=== PATIENT | female | born 1945 | race Caucasian/White ===

== ENCOUNTER 2016-08-06 13:34 | Inpatient (IN) | payer OTHER, MEDICARE ==
[~2016-08-06] VITALS: Ht 152.4 cm; Wt 102.0 kg
[2016-08-06] VITALS (8 sets, daily range): BP systolic 119–172; BP diastolic 64–86; PULSE 70–87; RESP 18–20; TEMP 98.1; O2SAT 96–100
[~2016-08-06 13:34] MED LIST: DILA100C PO; DILA50CH CHEW; GLUCTAB PO; LORA-474 PO; NEUR100C PO
[2016-08-06] MEDS ORDERED: FISHCAP4 PO (14:13)
[2016-08-06] MEDS ORDERED: VITA10007 PO (14:13)
[2016-08-06] MEDS ORDERED: CALC600T4 PO (14:13)
--- NOTE | 2016-08-06 14:36 | PD ---
HPI Chief Complaint: Injury Time Seen by Provider: 14:36 Travel History International Travel<30 days: No Contact w/Intl Traveler<30days: No Traveled to known affect area: No History of Present Illness HPI 71-year-old right-hand dominant female presents to the ED for evaluation of 7/ 10 right arm pain. Onset after falling into a ditch near her mailbox today. Patient states she lost her balance and fell, landing on her right arm. She denies hitting her head or loss of consciousness. Denies shoulder pain, hip pain. Endorses a "bubbly" feeling of the arm and states that her arm is "rubbery." She denies numbness, tingling. She has been ambulatory since the accident. She states that a neighbor helped her into the house and a friend drove her to the ED. She denies chronic health problems and takes no daily medications. PFSH Past Medical History Arthritis: Yes Autoimmune Disease: No Blood Disorders: No Depression: Yes Cancer: No Cardiovascular Problems: Yes Chemotherapy: No Diabetes: Yes Endocrine: Yes Gastrointestinal Disorders: No Genitourinary: No Immune Disorder: No Musculoskeletal: Yes Psychiatric: Yes Radiation Therapy: No Seizures: Yes Tetanus Vaccination: Unknown Influenza Vaccination: No ?: Not Past Surgical History AICD: No Arteriovenous Shunt: No Hysterectomy: Yes Insulin Pump: No Joint Replacement: No Pacemaker: No Tonsillectomy: Yes (AND ADDENOIDS) Other Surgery: No Social History Alcohol Use: Yes Tobacco Use: No Substance Use: No Allergies-Medications (Allergen,Severity, Reaction): Coded Allergies: No Known Allergies (Verified , 08/06/16) Reported Meds & Prescriptions Reported Meds & Active Scripts Active Reported Fish Oil + D3 (Fish Oil-Cholecalciferol) 1,200-1,000 Mg-Unit Cap 1 Cap PO DAILY Vitamin C (Ascorbic Acid) 1,000 Mg Tab 1,000 Mg PO DAILY Calcium Carbonate 1,500 Mg Tab 1,500 Mg PO DAILY 1,500 mg calcium carbonate (600 mg elemental calcium) Review of Systems Except as stated in HPI: all other systems reviewed are Neg Physical Exam Narrative GENERAL: Well-nourished, well-developed alert, oriented, obese white female in no acute distress.. SKIN: Warm and dry. Intact. HEAD: Normocephalic. EYES: No scleral icterus. No injection or drainage. NECK: Supple, trachea midline. No JVD or lymphadenopathy. CARDIOVASCULAR: Regular rate and rhythm without murmurs, gallops, or rubs. RESPIRATORY: Breath sounds equal bilaterally. No accessory muscle use. GASTROINTESTINAL: Abdomen soft, non-tender, nondistended. MUSCULOSKELETAL: No cyanosis, or edema. FOCUSED RIGHT UPPER EXTREMITY EXAM: 2+ radial pulse. Exam limited due to body habitus. Crepitus and tenderness of the mid forearm. No tenderness to palpation of the radial head. No tenderness to palpation of the wrist. No snuffbox tenderness. Patient is able to weakly flex and extend the fingers of the hand. Neurovascularly intact. BACK: Nontender without obvious deformity. No CVA tenderness. Data Data Last Documented VS Vital Signs Date Time Temp Pulse Resp B/P Pulse Ox O2 Delivery O2 Flow Rate FiO2 08/06/16 18:50 78 18 119/79 98 Room Air 08/06/16 16:30 2.00 08/06/16 13:42 98.1 Orders Acetamin-Hydrocod 325-5 Mg ([place] 5-325 (08/06/16 14:45) Forearm (2vws) (08/06/16 14:40) Ice/Cold Pack (08/06/16 14:40) ^ Insert Iv (08/06/16 15:09) Propofol 200 Mg/20 Ml Inj (Diprivan 200 (08/06/16 16:30) Elbow, Limited (Ap&Lat) (08/06/16 14:40) Elbow, Limited (Ap&Lat) (08/06/16 ) Ondansetron Inj (Zofran Inj) (08/06/16 18:30) Morphine Inj (Morphine Inj) (08/06/16 18:30) Electrocardiogram (08/06/16 18:17) Complete Blood Count With Diff (08/06/16 18:17) Basic Metabolic Panel (Bmp) (08/06/16 18:17) Prothrombin Time / Inr (Pt) (08/06/16 18:17) Act Partial Throm Time (Ptt) (08/06/16 18:17) Urinalysis - C+S If Indicated (08/06/16 18:17) Chest, Single Ap (08/06/16 18:17) Splint Or Brace Apply/Monitor (08/06/16 18:22) Fiberglass Splint Elbow Adult (08/06/16 ) Sling Cradle Arm (08/06/16 ) Admit Order (Ed Use Only) (08/06/16 19:19) Labs Laboratory Tests Test 08/06/16 18:35 White Blood Count 9.7 TH/MM3 Red Blood Count 4.47 MIL/MM3 Hemoglobin 13.8 GM/DL Hematocrit 40.4 % Mean Corpuscular Volume 90.2 FL Mean Corpuscular Hemoglobin 30.9 PG Mean Corpuscular Hemoglobin 34.2 % Concent Red Cell Distribution Width 13.1 % Platelet Count 187 TH/MM3 Mean Platelet Volume 9.4 FL Neutrophils (%) (Auto) 77.5 % Lymphocytes (%) (Auto) 15.1 % Monocytes (%) (Auto) 6.2 % Eosinophils (%) (Auto) 0.4 % Basophils (%) (Auto) 0.8 % Neutrophils # (Auto) 7.5 TH/MM3 Lymphocytes # (Auto) 1.5 TH/MM3 Monocytes # (Auto) 0.6 TH/MM3 Eosinophils # (Auto) 0.0 TH/MM3 Basophils # (Auto) 0.1 TH/MM3 CBC Comment DIFF FINAL Differential Comment Prothrombin Time 10.4 SEC Prothromb Time International 0.9 RATIO Ratio Activated Partial 24.9 SEC Thromboplast Time Sodium Level 138 MEQ/L Potassium Level 4.4 MEQ/L Chloride Level 104 MEQ/L Carbon Dioxide Level 23.1 MEQ/L Anion Gap 11 MEQ/L Blood Urea Nitrogen 19 MG/DL Creatinine 0.61 MG/DL Estimat Glomerular Filtration 97 ML/MIN Rate Random Glucose 107 MG/DL Calcium Level 9.3 MG/DL [facility] Medical Decision Making Medical Screen Exam Complete: Yes Emergency Medical Condition: Yes Differential Diagnosis Fracture versus dislocation versus musculoskeletal pain versus other Narrative Course 71-year-old right-hand dominant female presents to the ED for evaluation of 7/ 10 right arm pain. Onset after falling into a ditch near her mailbox today. Patient states she lost her balance and fell, landing on her right arm. She denies hitting her head or loss of consciousness. Denies shoulder pain, hip pain. Endorses a "bubbly" feeling of the arm and states that her arm is "rubbery." She denies numbness, tingling. Vitals reviewed. Physical exam reveals an obese white female in no acute distress. Focused right upper extremity exam reveals 2+ radial pulse. Exam limited due to body habitus. Crepitus and tenderness of the mid forearm. No tenderness to palpation of the radial head. No tenderness to palpation of the wrist. No snuffbox tenderness. Patient is able to weakly flex and extend the fingers of the hand. Neurovascularly intact. Patient was administered 5 mg Lortab by mouth. Initial X-rays reveal dislocation of the elbow. Order to insert IV was placed. Patient was transferred to the medical pod under the care of Dr. Bailey for conscious sedation and closed reduction. Please see his notes for disposition. Cathy Tellez Aug 06, 2016 14:36
[2016-08-06] MEDS ORDERED: ACETAMINOPHEN/HYDROcodone 325 MG/5 MG TAB PO ONE (14:45)
--- NOTE | 2016-08-06 15:43 | RADHPO ---
EXAM DATE/TIME: 08/06/2016 14:51 [facility] COMPARISON: No previous studies available for comparison. INDICATIONS : Right forearm pain. Fall today. MEDICAL HISTORY : None. SURGICAL HISTORY : None. ENCOUNTER: Initial ACUITY: 1 day PAIN SCORE: 10/10 LOCATION: Right forearm. FINDINGS: The examination demonstrates dislocation of the right elbow. There is fracture which appears to origi blair off the capitulum. Detailed views of the elbow are warranted for further assessment. CONCLUSION: 1. Fracture dislocation of the right elbow as above. Crow Martinez MD on August 06, 2016 at 15:38 Board Certified Radiologist. This report was verified electronically.
[2016-08-06] MEDS ORDERED: PROPOFOL 200 MG/20 ML AMP IV ONE (16:30)
--- NOTE | 2016-08-06 17:28 | RADHPO ---
EXAM DATE/TIME: 08/06/2016 16:49 [facility] COMPARISON: No previous studies available for comparison. INDICATIONS : Post reduction. MEDICAL HISTORY : None. SURGICAL HISTORY : None. ENCOUNTER: Subsequent ACUITY: 1 day PAIN SCORE: 10/10 LOCATION: Right elbow FINDINGS: There is an acute dislocation of the distal humerus in relation to the proximal radius and ulna. Acu te fracture of the radial neck and probable coronoid process of the proximal ulna are also noted. CONCLUSION: Dislocation of the distal humerus in relation to the proximal ulna and radius with acute fractures in volving the proximal radius and coronoid process of the proximal ulna. Real Greenwood MD on August 06, 2016 at 17:23 Board Certified Radiologist. This report was verified electronically.
--- NOTE | 2016-08-06 18:06 | RADHPO ---
EXAM DATE/TIME: 08/06/2016 17:22 [facility] COMPARISON: ELBOW RIGHT LIMITED (AP & LAT), August 06, 2016, 16:49. INDICATIONS : Post reduction. MEDICAL HISTORY : None. SURGICAL HISTORY : None. ENCOUNTER: Subsequent ACUITY: 1 day PAIN SCORE: 10/10 LOCATION: Right elbow FINDINGS: There has been closed reduction of the right elbow dislocation. Acute displaced fractures involving the proximal radius and ulna are again noted. CONCLUSION: 1. Closed reduction of the right elbow joint dislocation. 2. Displaced fractures involving the right proximal radius and ulna. Real Greenwood MD on August 06, 2016 at 18:02 Board Certified Radiologist. This report was verified electronically.
[2016-08-06] MEDS ORDERED: ONDANSETRON HCL 4 MG/2 ML VIAL IV PUSH ONE (18:30)
[2016-08-06] MEDS ORDERED: MORPHINE SULFATE 8 MG/ML INJ IV PUSH ONE (18:30)
--- NOTE | 2016-08-06 18:38 | RADHPO ---
EXAM DATE/TIME: 08/06/2016 18:27 [facility] COMPARISON: No previous studies available for comparison. INDICATIONS : Fall. MEDICAL HISTORY : None. SURGICAL HISTORY : None. ENCOUNTER: Initial ACUITY: 1 day PAIN SCORE: 10/10 LOCATION: Bilateral chest FINDINGS: The lungs are clear without infiltrate, nodule, or mass. There is no appreciable pleural effusion fo r technique. Heart and mediastinum are unremarkable. CONCLUSION: No acute cardiopulmonary disease. Kendall Santo MD on August 06, 2016 at 18:36 Board Certified Radiologist. This report was verified electronically.
--- NOTE | 2016-08-06 18:56 | PD ---
Physical Exam Date Seen by Provider: Aug 06, 2016 Time Seen by Provider: 18:53 Narrative This 71-year-old female had presented with complaint of pain in her right elbow. She had fallen into a ditch. As a mechanical fall. She did not have loss of consciousness. She has no injury except for pain in the elbow she has had an x-ray which shows a dislocation of the right elbow with some bony fragments. I discussed the risks of conscious sedation with the patient and she was agreeable. Data Data Last Documented VS Vital Signs Date Time Temp Pulse Resp B/P Pulse Ox O2 Delivery O2 Flow Rate FiO2 08/06/16 18:50 78 18 119/79 98 Room Air 08/06/16 16:30 2.00 08/06/16 13:42 98.1 Orders Acetamin-Hydrocod 325-5 Mg ([place] 5-325 (08/06/16 14:45) Forearm (2vws) (08/06/16 14:40) Ice/Cold Pack (08/06/16 14:40) ^ Insert Iv (08/06/16 15:09) Propofol 200 Mg/20 Ml Inj (Diprivan 200 (08/06/16 16:30) Elbow, Limited (Ap&Lat) (08/06/16 14:40) Elbow, Limited (Ap&Lat) (08/06/16 ) Ondansetron Inj (Zofran Inj) (08/06/16 18:30) Morphine Inj (Morphine Inj) (08/06/16 18:30) Electrocardiogram (08/06/16 18:17) Complete Blood Count With Diff (08/06/16 18:17) Basic Metabolic Panel (Bmp) (08/06/16 18:17) Prothrombin Time / Inr (Pt) (08/06/16 18:17) Act Partial Throm Time (Ptt) (08/06/16 18:17) Urinalysis - C+S If Indicated (08/06/16 18:17) Chest, Single Ap (08/06/16 18:17) Splint Or Brace Apply/Monitor (08/06/16 18:22) [facility] Medical Record Reviewed: Yes Supervised Visit with KARIN: No Differential Diagnosis Differential includes fracture, fracture dislocation Narrative Course After reduction of the dislocation the case was discussed with Dr. Mcmillan. He hasn't the patient be admitted to medical service with preoperative evaluation. She is to be nothing by mouth after midnight Procedures Procedure Narrative After informed consent was obtained the patient was given intravenous propofol. The elbow was reduced with longitudinal traction. Initial attempt was not successful and the attempt was repeated. After the second attempt the dislocation appears reduced though there are fractures of the ulnar and the radial head. Diagnosis Primary Impression: Fracture dislocation of right elbow joint Qualified Code: S42.401A - Fracture dislocation of right elbow joint, closed, initial encounter Admitting Information Admitting Physician Requests: Admit Tae Mast MD Aug 06, 2016 18:56
[2016-08-06 19:01] LABS: AUTOMATED NEUTROPHIL # 7.5 TH/MM3 (1.8-7.7); BASOPHIL # 0.1 TH/MM3 (0-0.2); BASOPHIL % 0.8 % (0.0-2.0); EOSINOPHIL % 0.4 % (0.0-4.0); HEMATOCRIT 40.4 % (35.0-46.0); HEMO FLAGS DIFF FINAL; LYMPH % 15.1 % (9.0-44.0); LYMPHOCYTE # 1.5 TH/MM3 (1.0-4.8); MEAN CELL VOLUME 90.2 FL (80.0-100.0); MEAN CORPUSCULAR HEMOGLOBIN 30.9 PG (27.0-34.0); MEAN CORPUSCULAR HGB CONC 34.2 % (32.0-36.0); MONO % 6.2 % (0.0-8.0); NEUT % 77.5 % (16.0-70.0); PLATELET COUNT 187 TH/MM3 (150-450); RED BLOOD COUNT 4.47 MIL/MM3 (4.00-5.30); RED CELL DISTRIBUTION WIDTH 13.1 % (11.6-17.2); WHITE BLOOD COUNT 9.7 TH/MM3 (4.0-11.0)
[2016-08-06 19:02] LABS: POTASSIUM 4.4 MEQ/L (3.5-5.1)
[2016-08-06 19:05] LABS: BICARBONATE 23.1 MEQ/L (21.0-32.0)
[2016-08-06 19:08] LABS: APTT (PATIENT) 24.9 SEC (24.3-30.1); INTERNATIONAL NORMALIZED RATIO 0.9 RATIO; PROTHROMBIN TIME - PATIENT 10.4 SEC (9.8-11.6)
[2016-08-06] MEDS ORDERED: NALOXONE HCL 0.4 MG/ML AMP IV PRN (19:45)
[2016-08-06] MEDS ORDERED: SODIUM CHLORIDE 0.9% FLUSH 10 ML FLUSH IV FLUSH PRN (19:45)
[2016-08-06] MEDS ORDERED: ONDANSETRON HCL 4 MG/2 ML VIAL IV PUSH PRN (20:00)
[2016-08-06 20:02] LABS: BLOOD, URINE NEG (NEG); GLUCOSE,URINE NEG (NEG); KETONE, URINE NEG (NEG); NITRITE,URINE NEG (NEG); PH, URINE 6.5 (5.0-8.5)
[2016-08-06 20:15] LABS: URINE COLOR YELLOW (YELLW/STRAW)
[2016-08-06 20:16] LABS: COMMENT (UR) CULT NOT INDICATED; CULTURE IF INDICATED CULT NOT INDICATED; RBC, URINE 0-3 /hpf (0-3); SQUAMOUS EPITHELIAL CELL URINE 0-5 /hpf (0-5); WBC, URINE 0-2 /hpf (0-5)
[2016-08-06] MEDS: SODIUM CHLORIDE 0.9% FLUSH 10 ML FLUSH IV FLUSH SCH (21:00)
[2016-08-07] VITALS (7 sets, daily range): BP systolic 107–127; BP diastolic 53–80; PULSE 67–83; RESP 17–20; TEMP 97.4–98.2; O2SAT 92–95
[2016-08-07] MEDS: MORPHINE SULFATE 4 MG/ML INJ IV PUSH PRN ×5 (00:17→23:16)
[2016-08-07 05:11] LABS: BASOPHIL % 0.4 % (0.0-2.0); EOSINOPHIL % 0.4 % (0.0-4.0); HEMATOCRIT 35.4 % (35.0-46.0); HEMO FLAGS DIFF FINAL; LYMPH % 16.5 % (9.0-44.0); LYMPHOCYTE # 1.4 TH/MM3 (1.0-4.8); MEAN CELL VOLUME 89.3 FL (80.0-100.0); MEAN CORPUSCULAR HEMOGLOBIN 30.5 PG (27.0-34.0); MEAN CORPUSCULAR HGB CONC 34.2 % (32.0-36.0); MONO % 10.9 % (0.0-8.0); NEUT % 71.8 % (16.0-70.0); PLATELET COUNT 185 TH/MM3 (150-450); RED BLOOD COUNT 3.96 MIL/MM3 (4.00-5.30); WHITE BLOOD COUNT 8.4 TH/MM3 (4.0-11.0)
[2016-08-07 05:48] LABS: BICARBONATE 28.7 MEQ/L (21.0-32.0); POTASSIUM 3.8 MEQ/L (3.5-5.1)
[2016-08-07] MEDS: SODIUM CHLORIDE 0.9% FLUSH 10 ML FLUSH IV FLUSH SCH ×2 (08:59→21:00)
--- NOTE | 2016-08-07 09:47 | RADRPT ---
EXAM DATE/TIME: 08/07/2016 08:15 [facility] COMPARISON: ELBOW RIGHT LIMITED (AP & LAT), August 06, 2016, 16:49. ELBOW RIGHT LIMITED (AP & LAT), August 06 7, 17:22. INDICATIONS : Right elbow fracture from fall. RADIATION DOSE: 31.25 CTDIvol (mGy) MEDICAL HISTORY : Cardiovascular disease. Diabetes SURGICAL HISTORY : Hysterectomy. ENCOUNTER: Initial ACUITY: 2 days PAIN SCALE: 10/10 LOCATION: Right elbow TECHNIQUE: Volumetric scanning of the elbow was performed. Using automated exposure control and adjustment of t he mA and/or kV according to patient size, radiation dose was kept as low as reasonably achievable to obtain optimal diagnostic quality images. FINDINGS: BONES: Fracture dislocation of the elbow. Believe the distal humerus is intact but there is extensive, commi nuted and displaced fracture of the radial head with no single large fragment identified. There also appears to be a fracture through the distal lip of the articulating surface of the proximal ulna. The main body of the olecranon remains intact, however. JOINTS: Elbow joint is dislocated with the epicondyle perched on the fractured distal lip of the proximal uln a. SOFT TISSUES: Muscles, tendons and neurovascular structures are grossly unremarkable. No evidence of mass, organize d fluid collection, or foreign body. CONCLUSION: 1. Extensive fracture dislocation of the elbow as detailed above. The radial head is extensively comm inuted and displaced with no large single fragment identified. 2. I believe there is a small fracture of the distal articulating lip of the proximal ulna. The humer al condyle is perched on the fractured component of the ulna Malcom Oconnor MD on August 07, 2016 at 9:37 Board Certified Radiologist. This report was verified electronically.
--- NOTE | 2016-08-07 10:09 | EKG ---
Date Performed: 08/06/2016 Time Performed: 18:37:32 PTAGE: 71 years EKG: Sinus rhythm Normal ECG PREVIOUS TRACING : 12/01/2010 08.16 DOCTOR: Sourav Cardoza Interpretating Date/Time 08/07/2016 10:08:07
--- NOTE | 2016-08-07 12:07 | HHI.HP ---
[facility] Service [facility] Primary Care Physician Eloisa Chamberlain MD Admission Diagnosis FRACTURE DISLOCATION LEFT ELBOW Diagnoses: Chief Complaint: right elbow pain from fall Travel History International Travel<30 Days: No Contact w/Intl Traveler <30 Da: No Traveled to Known Affected Are: No History of Present Illness This is a 71 y/o F who presented with right elbow pain. Patient stated yesterday after checking the mail she lost her balance fell landed on her right arm in the ditch. Patient stated that after the fall she was not able to move her right arm. She stated that a friend had to help her get up and that later on her took her to the hospital. Patient past medical history only includes acid reflux. She stated that she had been under general anesthesia before for her hysterectomy tonsillectomy with no complications with general anesthesia. She stated that it did take a while to get her system but she had no complications. Patient also is active and she works out at [employer]. She stated that she does 30 minute workout there and also she rides her bike. Patient denies any chest pain, shortness of breathing, lightheadedness/ dizziness or palpitations with these activities. She stated that she is relatively healthy person. Review of Systems Constitutional: DENIES: Diaphoretic episodes, Fatigue, Fever, Weight gain, Weight loss, Chills, Dizziness, Change in appetite, Night Sweats Endocrine: DENIES: Abnorml menstrual pattern, Heat/cold intolerance, Polydipsia , Polyuria, Polyphagia Eyes: DENIES: Blurred vision, Diplopia, Eye inflammation, Eye pain, Vision loss , Photosensitivity, Double Vision Ears, nose, mouth, throat: DENIES: Tinnitus, Hearing loss, Vertigo, Nasal discharge, Oral lesions, Throat pain, Hoarseness, Ear Pain, Running Nose, Epistaxis, Sinus Pain, Toothache, Odynophagia Respiratory: DENIES: Apneas, Cough, Snoring, Wheezing, Hemoptysis, Sputum production, Shortness of breath Cardiovascular: DENIES: Chest pain, Palpitations, Syncope, Dyspnea on Exertion , PND, Lower Extremity Edema, Orthopnea, Claudication Gastrointestinal: DENIES: Abdominal pain, Black stools, Bloody stools, Constipation, Diarrhea, Nausea, Vomiting, Difficulty Swallowing, Anorexia Genitourinary: DENIES: Abnormal vaginal bleeding, Dysmenorrhea, Dyspareunia, Sexual dysfunction, Urinary frequency, Urinary incontinence, Urgency, Hematuria , Dysuria, Nocturia, Vaginal discharge Musculoskeletal: COMPLAINS OF: Joint pain, Joint Swelling, DENIES: Muscle aches, Stiffness, Back pain, Neck pain Integumentary: DENIES: Abnormal pigmentation, Pruritus, Rash, Nail changes, Breast masses, Breast skin changes, Nipple discharge Hematologic/lymphatic: DENIES: Bruising, Lymphadenopathy Immunologic/allergic: DENIES: Eczema, Urticaria Neurologic: DENIES: Abnormal gait, Headache, Localized weakness, Paresthesias, Seizures, Speech Problems, Tremor, Poor Balance Psychiatric: DENIES: Anxiety, Confusion, Mood changes, Depression, Hallucinations, Agitation, Suicidal Ideation, Homicidal Ideation, Delusions Past Family Social History Past Medical History GERD Past Surgical History Hysterectomy due to endometriosis Tonsillectomy Reported Medications Fish Oil + D3 (Fish Oil-Cholecalciferol) 1,200-1,000 Mg-Unit Cap 1 Cap PO DAILY Vitamin C (Ascorbic Acid) 1,000 Mg Tab 1,000 Mg PO DAILY Calcium Carbonate 1,500 Mg Tab 1,500 Mg PO DAILY 1,500 mg calcium carbonate (600 mg elemental calcium) Allergies: Coded Allergies: No Known Allergies (Verified , 08/06/16) Active Ordered Medications Current Medications Acetaminophen/ Hydrocodone Bitart ([place] 5-325 Mg) 1 tab ONCE ONCE PO Last administered on 08/06/16 14:58; Start 08/06/16 at 14:45; Stop 08/06/16 at 14:46 ; Status DC Propofol (Diprivan 200 Mg/20 ml Inj) 100 mg ONCE ONCE IV Last administered on 08/06/16 16:34; Start 08/06/16 at 16:30; Stop 08/06/16 at 16:31; Status DC Ondansetron HCl (Zofran Inj) 4 mg ONCE ONCE IV PUSH Last administered on 18:40; Start 08/06/16 at 18:30; Stop 08/06/16 at 18:31; Status DC Morphine Sulfate (Morphine Inj) 5 mg ONCE ONCE IV PUSH Last administered on 18:41; Start 08/06/16 at 18:30; Stop 08/06/16 at 18:31; Status DC Sodium Chloride (NS Flush) 2 ml UNSCH PRN IV FLUSH FLUSH AFTER USING IV ACCESS ; Start 08/06/16 at 19:45 Sodium Chloride (NS Flush) 2 ml BID IV FLUSH Last administered on 08/07/16 08: 59; Start 08/06/16 at 21:00 Naloxone HCl (Narcan Inj) 0.4 mg UNSCH PRN IV SEE LABEL COMMENTS; Start at 19:45 Morphine Sulfate (Morphine Inj) 2 mg Q3H PRN IV PUSH pain >5 Last administered on 08/07/16 10:57; Start 08/06/16 at 20:00 Ondansetron HCl (Zofran Inj) 4 mg Q6HR PRN IV PUSH nausea Last administered on 08/07/16 00:16; Start 08/06/16 at 20:00 Family History Patient stated that all family members are relatively healthy. She denies any family history of cardiovascular disease, diabetes, or any cancer. Social History There are any tobacco or illicit drug use. Patient occasionally drinks alcohol. She was with her . Physical Exam Vital Signs Vital Signs Date Time Temp Pulse Resp B/P Pulse Ox O2 Delivery O2 Flow Rate FiO2 08/07/16 11:02 20 08/07/16 07:59 97.7 72 17 121/61 92 08/07/16 04:00 98.0 74 20 107/56 95 08/07/16 01:17 98.0 73 20 108/80 95 08/07/16 00:40 70 20 127/68 99 08/06/16 22:00 70 20 130/65 98 08/06/16 20:45 76 20 150/64 99 08/06/16 20:22 20 98 08/06/16 19:42 74 20 143/69 98 08/06/16 18:50 78 18 119/79 98 Room Air 08/06/16 17:35 75 18 155/81 100 Room Air 08/06/16 16:30 99 2.00 08/06/16 16:30 99 08/06/16 16:00 18 08/06/16 15:45 72 18 154/86 96 Room Air 08/06/16 13:42 98.1 87 18 172/83 97 Room Air Physical Exam GENERAL: This is a well-nourished, well-developed patient, in no apparent distress. SKIN: No rashes, ecchymoses or lesions. Cool and dry. HEAD: Atraumatic. Normocephalic. No temporal or scalp tenderness. EYES: Pupils equal round and reactive. Extraocular motions intact. No scleral icterus. No injection or drainage. ENT: Nose without bleeding, purulent drainage or septal hematoma. Throat without erythema, tonsillar hypertrophy or exudate. Uvula midline. Airway patent. NECK: Trachea midline. No JVD or lymphadenopathy. Supple, nontender, no meningeal signs. CARDIOVASCULAR: Regular rate and rhythm without murmurs, gallops, or rubs. RESPIRATORY: Clear to auscultation. Breath sounds equal bilaterally. No wheezes , rales, or rhonchi. GASTROINTESTINAL: Abdomen soft, non-tender, nondistended. No hepato-splenomegaly , or palpable masses. No guarding. MUSCULOSKELETAL: Right arm is in a splint. Normal sensation to touch than her fingers. She is able to wiggle her fingers. Negative Homans sign bilaterally. NEUROLOGICAL: Awake and alert. Cranial nerves II through XII intact. Motor and sensory grossly within normal limits. Five out of 5 muscle strength in all muscle groups. Normal speech. Laboratory Laboratory Tests Test 08/06/16 08/06/16 08/07/16 18:35 19:40 04:23 White Blood Count 9.7 8.4 Red Blood Count 4.47 3.96 Hemoglobin 13.8 12.1 Hematocrit 40.4 35.4 Mean Corpuscular Volume 90.2 89.3 Mean Corpuscular Hemoglobin 30.9 30.5 Mean Corpuscular Hemoglobin 34.2 34.2 Concent Red Cell Distribution Width 13.1 14.0 Platelet Count 187 185 Mean Platelet Volume 9.4 9.3 Neutrophils (%) (Auto) 77.5 71.8 Lymphocytes (%) (Auto) 15.1 16.5 Monocytes (%) (Auto) 6.2 10.9 Eosinophils (%) (Auto) 0.4 0.4 Basophils (%) (Auto) 0.8 0.4 Neutrophils # (Auto) 7.5 6.0 Lymphocytes # (Auto) 1.5 1.4 Monocytes # (Auto) 0.6 0.9 Eosinophils # (Auto) 0.0 0.0 Basophils # (Auto) 0.1 0.0 CBC Comment DIFF FINAL DIFF FINAL Differential Comment Prothrombin Time 10.4 Prothromb Time International 0.9 Ratio Activated Partial 24.9 Thromboplast Time Sodium Level 138 137 Potassium Level 4.4 3.8 Chloride Level 104 101 Carbon Dioxide Level 23.1 28.7 Anion Gap 11 7 Blood Urea Nitrogen 19 12 Creatinine 0.61 0.61 Estimat Glomerular Filtration 97 97 Rate Random Glucose 107 125 Calcium Level 9.3 8.7 Urine Color YELLOW Urine Turbidity CLEAR Urine pH 6.5 Urine Specific [place] 1.015 Urine Protein NEG Urine Glucose (UA) NEG Urine Ketones NEG Urine Occult Blood NEG Urine Nitrite NEG Urine Bilirubin NEG Urine Leukocyte Esterase NEG Urine RBC 0-3 Urine WBC 0-2 Urine Squamous Epithelial 0-5 Cells Microscopic Urinalysis Comment CULT NOT INDICATED Result Diagram: 08/07/1642208/07/16422 Imaging Last Impressions Upper Extremity CT 08/07/16 0000 Signed Impressions: Service Date/Time: Sunday, August 07, 2016 08:15 - CONCLUSION: 1. Extensive fracture dislocation of the elbow as detailed above. The radial head is extensively comminuted and displaced with no large single fragment identified. 2. I believe there is a small fracture of the distal articulating lip of the proximal ulna. The humeral condyle is perched on the fractured component of the ulna Malcom Ocononr MD Chest X-Ray 08/06/167 Signed Impressions: Service Date/Time: Saturday, August 06, 2016 18:27 - CONCLUSION: No acute cardiopulmonary disease. Kendall Santo MD Radius/Ulna X-Ray 08/06/16 1440 Signed Impressions: Service Date/Time: Saturday, August 06, 2016 14:51 - CONCLUSION: 1. Fracture dislocation of the right elbow as above. Crow Martinez MD Elbow X-Ray 08/06/16 1440 Signed Impressions: Service Date/Time: Saturday, August 06, 2016 16:49 - CONCLUSION: Dislocation of the distal humerus in relation to the proximal ulna and radius with acute fractures involving the proximal radius and coronoid process of the proximal ulna. Real Greenwood MD Assessment and Plan Assessment and Plan 71 y/o F with GERD p/w mechanical fall on elbow Right dislocated elbow fracture -Xray of arm showed fracture dislocation of the right elbow and dislocation of the distal humerus in relation to the proximal ulna and radius with acute fractures involving the proximal radius and coronoid process of the proximal ulna. -CT of arm showed extensive fracture dislocation of the elbow as detailed above. The radial head is extensively comminuted and displaced with no large single fragment identified, a small fracture of the distal articulating lip of the proximal ulna. The humeral condyle is perched on the fractured component of the ulna. -Reduced in ED. -ED physician spoke to marco Jennings for possible surgery today and was told to get NPO. -Patient is medically clear for surgery. She is low to moderate risk. Patient understands the risk and benefits. DVT prophylaxis -SCDs Code Status full Discussed Condition With patient Physician Certification 2 Midnight Certification Type: Admission for Inpatient Services Order for Inpatient Services The services are ordered in accordance with Medicare regulations or non- Medicare payer requirements, as applicable. In the case of services not specified as inpatient-only, they are appropriately provided as inpatient services in accordance with the 2-midnight benchmark. Estimated LOS (days): 2 2 days is the estimated time the patient will need to remain in the hospital, assuming treatment plan goals are met and no additional complications. Post-Hospital Plan: Home Health Zoila Berry MD Aug 07, 2016 12:06
[2016-08-08] VITALS: BP 121/68; PULSE 80; RESP 20; TEMP 98; O2SAT 95
[2016-08-08] MEDS: MORPHINE SULFATE 4 MG/ML INJ IV PUSH PRN ×4 (03:40→21:10)
[2016-08-08 04:00] VITALS: BP 124/70; PULSE 88; RESP 20; TEMP 98.8; O2SAT 96
[2016-08-08 05:40] LABS: HEMATOCRIT 35.5 % (35.0-46.0); MEAN CELL VOLUME 90.4 FL (80.0-100.0); MEAN CORPUSCULAR HEMOGLOBIN 30.7 PG (27.0-34.0); PLATELET COUNT 169 TH/MM3 (150-450); RED BLOOD COUNT 3.93 MIL/MM3 (4.00-5.30); RED CELL DISTRIBUTION WIDTH 13.7 % (11.6-17.2); REVIEW FLAG FINAL; WHITE BLOOD COUNT 8.1 TH/MM3 (4.0-11.0)
[2016-08-08 05:59] LABS: BICARBONATE 26.2 MEQ/L (21.0-32.0); POTASSIUM 3.7 MEQ/L (3.5-5.1)
--- NOTE | 2016-08-08 06:57 | PD.ORT.PN ---
Subjective Subjective Remarks Elisa is a 71-year-old female who fell 2 days ago. She had a fracture dislocation of her right elbow. Her only complaint is her right arm. Pain is worse with movement Objective Vitals Vital Signs Date Time Temp Pulse Resp B/P Pulse Ox O2 Delivery O2 Flow Rate FiO2 08/08/16 04:00 98.8 88 20 124/70 96 08/08/16 00:00 98.0 80 20 121/68 95 08/07/16 20:00 98.2 83 20 118/67 94 08/07/16 17:49 17 08/07/16 16:00 98.1 75 19 119/59 95 08/07/16 12:00 97.4 67 17 109/53 92 08/07/16 07:59 97.7 72 17 121/61 92 I/O 08/07/16 08/07/16 08/07/16 08/08/16 08/08/16 08/08/16 07:00 15:00 23:00 07:00 15:00 23:00 Intake Total 0 ml 740 ml 240 ml 0 ml Output Total 1600 ml 500 ml 600 ml 550 ml Balance -1600 ml 240 ml -360 ml -550 ml Intake Oral 0 ml 740 ml 240 ml 0 ml Output Urine Total 1600 ml 500 ml 600 ml 550 ml # Voids 1 # Bowel Movements 1 0 0 Result Diagram: 08/08/16 0438 08/08/16 0438 Objective Remarks Patient is awake and alert. Examination of right elbow reveals pain with elbow motion. She has mild swelling. She has intact sensation in all fingers. Assessment & Plan Assessment and Plan CT scan was reviewed. Patient has a comminuted radial head fracture. Fracture fragments are trapped within the elbow joint. I would recommend surgery for elbow arthrotomy with removal of bone fragments from the joint, radial head replacement versus ORIF, possible ligament repair, and possible external fixation. All questions were answered. I will plan on surgery today. Nothing by mouth. Consent signed on chart Ish Garcia MD Aug 08, 2016 06:57
--- NOTE | 2016-08-08 07:34 | MB ---
cc: JAMAR GABRIEL DATE OF ADMISSION 08/06/2016 DATE OF CONSULTATION 08/07/2016 REASON FOR CONSULTATION Right elbow fracture-dislocation. CONSULTING PHYSICIAN Dr. Berry. HISTORY Elisa is a 71-year-old female who had a fall. She went out to check her mail. She lost her balance and fell. She landed on her right arm. She presented to the emergency room where x-rays revealed a right elbow fracture-dislocation. She underwent attempted closed reduction. X-rays revealed the reduction was not completely concentric. She had a subsequent CT scan of her elbow. Her only complaint is her right elbow. She had no other injuries. She had no dizziness, syncope or loss of consciousness. PAST MEDICAL HISTORY ILLNESSES Reflux. SURGERIES 1. Hysterectomy. 2. Tonsillectomy. MEDICATIONS 1. Vitamin C. 2. Calcium. 3. Fish oil. ALLERGIES No known drug allergies. SOCIAL HISTORY The patient denies tobacco or drug use. She drinks alcohol occasionally. She lives with her . FAMILY HISTORY Noncontributory. She denies any history of diabetes, cardiovascular disease or cancer. PHYSICAL EXAMINATION GENERAL: The patient is a well-developed, well-nourished, 71-year-old female who is awake and alert. She is alert and oriented x 3. VITAL SIGNS: Temperature 98.8, pulse 88, respirations 20, blood pressure 124/70, O2 sat 96% on room air. HEAD: The patient is normocephalic. Pupils are equal. NECK: Soft, nontender. Trachea is midline. ABDOMEN: Soft, nontender, nondistended. EXTREMITIES: Examination of the right arm reveals no tenderness about her shoulder, wrist or fingers. She has intact sensation in all fingers. Skin is intact. She is tender to palpation around the elbow. She has pain with any elbow motion. Examination of the left arm reveals no pain with shoulder, elbow or wrist motion. Skin is intact. Radial pulses palpable. Sensation is intact. Examination of the bilateral lower extremities reveals no pain with hip, knee or ankle motion. Skin is intact in both feet. Sensation is intact. Dorsalis pedis pulses are palpable. IMAGING STUDIES CT scan of right elbow was reviewed. CT scan reveals a displaced radial head fracture. The radial head fragments are trapped within the elbow joint. The elbow was not concentrically reduced. IMPRESSION 1. Comminuted radial head fracture. 2. Right elbow dislocation. PLAN The treatment options were discussed with the patient. At this point I would recommend right elbow arthrotomy with removal of bone fragments. I would then recommend right radial head replacement versus open reduction, internal fixation with plates and screws. I will then examine the patient's elbow to see if it is stable. If it is unstable, she may need ligamentous repair and possible external fixation of the elbow. The risks of surgery include bleeding, infection, injury arteries, nerves, blood vessels, nonunion, malunion, elbow dislocation, elbow stiffness, loss of motion as well as medical complications associated anesthesia. All questions were answered. A mid-level provider in my office (nurse practitioner or physician assistant merchandise manager) may see this patient on follow-up visits and continue to implement the objectives of this plan including: Starting or adjusting medications, injections , cast application, orthotics, brace application, physical therapy, radiological studies (including x-ray, MRI, CT, ultrasound, bone scan), vascular studies, neurologic studies, specialist consultation, and proceeding with surgical management, as appropriate. MD CORAZON Smart/LAUREL /7:18 AM /7:25 AM YESSENIA
[2016-08-08] MEDS: SODIUM CHLORIDE 0.9% FLUSH 10 ML FLUSH IV FLUSH SCH ×2 (07:38→21:00)
[2016-08-08 08:00] VITALS: BP 122/60; PULSE 76; RESP 18; TEMP 98.4; O2SAT 94
[2016-08-08] MEDS ORDERED: VANCOMYCIN HCL 1000 MG VIAL ONE (08:31)
[2016-08-08] MEDS ORDERED: SODIUM CHLOR 0.9% 250 ML INJ 250 ML ONE (08:31)
[2016-08-08] MEDS ORDERED: GENTAMICIN SULFATE 80 MG/2 ML VIAL ONE (08:31)
--- NOTE | 2016-08-08 08:41 | PD.OP ---
cc: Ish Rey MD Operative Report Date of Surgery: Aug 08, 2016 Preoperative Diagnosis: Right elbow dislocation with comminuted fracture of radial head Postoperative Diagnosis: Procedure: Right elbow arthrotomy with removal of bone fragments, right radial head replacement, open treatment of right elbow dislocation, suture repair of coronoid process Anesthesia: Gen. Surgeon: Ish Rey Interventional Physician(s): RENARD Styles PA-C The surgical procedure was assisted by my physician radiology assistant. My P.A. presence was necessary throughout this case for the manipulation and positioning of the surgical extremity. My P.A. was assisting me throughout the duration of this procedure. The skill set of a physician radiology assistant was medically necessary to complete this procedure. During the surgical case the surgical resident was working at the back table and the physician radiology assistant was directly assisting me. Operation and Findings: Patient was seen and evaluated preoperatively. Patient was found to have a displaced intra-articular radial head fracture with elbow dislocation. The risk and benefits of the surgery were discussed in depth and informed consent was obtained. Risk of surgery include bleeding, infection, painful hardware, wound, case, elbow stiffness, loss of motion, elbow arthritis, injuries to arteries nerves or blood vessels, weakness and numbness of hand, as well as medical complications associated with general anesthesia. All questions were answered. Patient was brought to operating room. IV sedation and anesthesia were administered. Patient was placed into a lateral decubitus position. Timeout procedure was performed. IV antibiotics were administered prior to incision. The operative arm was prepped with alcohol followed by Hibiclens and draped in usual sterile fashion. Procedure began with a 4 inch incision over the posterior lateral aspect of right elbow. Subcutaneous tissue dissected with Bovie. Fascia was opened to expose the proximal radius. Fracture site was visualized. Fascia was elevated around the fracture site. Care was taken to avoid injury to the radial nerve and posterior interosseous nerve. There was significant comminution of the radial head. At this point an arthrotomy was created. The lateral border of the triceps was elevated. The elbow was dislocated. Multiple bone fragments were removed from the elbow joint. The entire radial head was entrapped within the joint. The radial head fracture was too comminuted for open reduction internal fixation. At this point the coronoid process fragment was visualized. It was a small fragment which was too small for screw fixation. 2 drill holes were now passed through the olecranon from posterior to anterior. A 2 FiberWire suture was now passed through one of the drill holes. The FiberWire suture was now passed around and through the coronoid process fragment. The suture was now passed back out the second hole of the olecranon. The elbow was reduced with gentle manipulation.. The suture was tensioned to help hold reduction. Next attention was turned to the radial head. The radial head fragment was sized and found to be size 22. The Biomet replacement system was utilized. The proximal radius was now cut with an oscillating saw. Soft tissue was protected. The canal was now broached up to size 7. Size 7 was found to be a good fit. A trial 22 x 10 mm head was placed. Elbow was reduced. The elbow was relatively stable and had good range of motion. Fluoroscopy was used to confirm appropriate implant size. Unfortunately the size 7 implant stem was not available for use. Decision was made to cement a size 6 stem. A portion of the radial head was cut to create a cement restrictor. The bone plug was placed into the radius and impacted into appropriate position. Next Biomet PMMA cement was mixed. Cement was carefully pressurized into the proximal radius. Excess cement was removed. A size 6 Biomet stem was not cemented into place. Stem was held in appropriate position until cement was set. Excess cement was carefully removed. A 22 x 10 mm head was opened and placed on the implant. Elbow was again reduced with good range of motion good stability. Fluoroscopy confirmed concentric reduction of the elbow. Wound was now thoroughly irrigated. With the elbow held in a reduced position the previously placed FiberWire suture was now tensioned and tightened. The capsule and fascia around the radial head were closed with #1 Vicryl. Subcutaneous tissues closed with 3-0 Vicryl. Skin was closed with sulaiman. Sterile dressings were applied. Patient placed into well molded well-padded long-arm splint with the elbow at 90. Postreduction x-rays revealed well aligned fracture and appropriate reduction of the elbow. Patient was awakened and transferred to recovery in stable condition. Needle and sponge counts were correct. Ish Rey MD Aug 08, 2016 08:41 Wound was now thoroughly irrigated. Incision was now closed with #1 Vicryl, 3- 0 Vicryl, and sulaiman. Sterile dressings were applied. Patient's placed a well molded well-padded splint. Patient was transferred to recovery in stable condition. Ish Rey MD Aug 08, 2016 08:41
[2016-08-08] MEDS ORDERED: Post-op Orders (for Pharmacy) MISC XX ONE (08:45)
[2016-08-08] MEDS ORDERED: MIDAZOLAM HCL 2 MG/2 ML VIAL ONE (09:02)
[2016-08-08] MEDS ORDERED: ACETAMINOPHEN 1000 MG/100 ML VIAL IV ONE (09:02)
[2016-08-08] MEDS ORDERED: DEXAMETHASONE SOD PHOS 4 MG/ML VIAL ONE (09:03)
[2016-08-08] MEDS ORDERED: ceFAZolin INJ 1,000 MG VIAL IV ONE (09:50)
[2016-08-08] MEDS ORDERED: fentaNYL CITRATE 250 MCG/5 ML AMP ONE (11:50)
[2016-08-08 12:00] VITALS: BP 167/81; PULSE 82; RESP 19; TEMP 97.2; O2SAT 94
[2016-08-08] MEDS ORDERED: PHENYLEPH/NS 1000 MCG/10 ML SYR IV ONE (12:00)
[2016-08-08] MEDS ORDERED: ONDANSETRON HCL 4 MG/2 ML VIAL IV PUSH ONE (12:00)
[2016-08-08] MEDS ORDERED: PROPOFOL 200 MG/20 ML AMP IV ONE (12:00)
[2016-08-08] MEDS ORDERED: ePHEDrine/NS 25 MG/5 ML SYR IV ONE (12:00)
[2016-08-08] MEDS ORDERED: DO NOT ADM ANY ANTICOAGULANT DRUGS XX PRN (12:00)
[2016-08-08] MEDS: ACETAMINOPHEN/HYDROcodone 325 MG/10 MG TAB PO PRN ×2 (12:43→16:14)
--- NOTE | 2016-08-08 15:23 | RADRPT ---
EXAM DATE/TIME: 08/08/2016 11:02 [facility] COMPARISON: ELBOW RIGHT LIMITED (AP & LAT), August 06, 2016, 17:22. INDICATIONS : ORIF right radial head replacement. MEDICAL HISTORY : None. SURGICAL HISTORY : None. ENCOUNTER: Subsequent ACUITY: 3 days PAIN SCORE: Non-responsive. LOCATION: Right elbow. FINDINGS: Two view examination of the right elbow demonstrates interval repair of the severely comminuted fract ure proximal right radius. There is now a radial prostheses. Previous dislocation has been reduced. CONCLUSION: Successful repair and reduction of previous fracture dislocation. The severely comminuted radial head corbin been replaced with a prostheses. Malcom Oconnor MD on August 08, 2016 at 14:47 Board Certified Radiologist. This report was verified electronically.
[2016-08-08 16:00] VITALS: BP 136/69; PULSE 85; RESP 18; TEMP 97.2; O2SAT 94
--- NOTE | 2016-08-08 16:53 | HHI.PR ---
Subjective Remarks f/u for right arm fracture. patient just got back from PACU. She stated she is very tired. Denied any pain at the moment but stated her arm feels funny. Denied any SOB, CP, palpitations, lightheadedness/dizziness. Objective Vitals Vital Signs Date Time Temp Pulse Resp B/P Pulse Ox O2 Delivery O2 Flow Rate FiO2 08/08/16 16:00 97.2 85 18 136/69 94 08/08/16 12:00 97.2 82 19 167/81 94 08/08/16 11:42 97.4 89 18 161/72 95 Nasal Cannula 3 08/08/16 08:00 98.4 76 18 122/60 94 08/08/16 04:00 98.8 88 20 124/70 96 08/08/16 00:00 98.0 80 20 121/68 95 08/07/16 20:00 98.2 83 20 118/67 94 08/07/16 17:49 17 I/O 08/07/16 08/07/16 08/07/16 08/08/16 08/08/16 08/08/16 07:00 15:00 23:00 07:00 15:00 23:00 Intake Total 0 ml 740 ml 240 ml 0 ml 800 ml Output Total 1600 ml 500 ml 600 ml 550 ml 950 ml Balance -1600 ml 240 ml -360 ml -550 ml -150 ml Intake Oral 0 ml 740 ml 240 ml 0 ml Other 800 ml Output Urine Total 1600 ml 500 ml 600 ml 550 ml 900 ml Estimated Blood Loss 50 ml # Voids 1 # Bowel Movements 1 0 0 Result Diagram: 08/08/16 0438 08/08/16 0438 Imaging Last Impressions Elbow X-Ray 08/08/16 0000 Signed Impressions: Service Date/Time: July 11:02 - CONCLUSION: Successful repair and reduction of previous fracture dislocation. The severely comminuted radial head corbin been replaced with a prostheses. Malcom Oconnor MD Upper Extremity CT 08/07/16 0000 Signed Impressions: Service Date/Time: Sunday, August 07, 2016 08:15 - CONCLUSION: 1. Extensive fracture dislocation of the elbow as detailed above. The radial head is extensively comminuted and displaced with no large single fragment identified. 2. I believe there is a small fracture of the distal articulating lip of the proximal ulna. The humeral condyle is perched on the fractured component of the ulna Malcom Oconnor MD Chest X-Ray 08/06/16 1817 Signed Impressions: Service Date/Time: Saturday, August 06, 2016 18:27 - CONCLUSION: No acute cardiopulmonary disease. Kendall Santo MD Radius/Ulna X-Ray 08/06/16 1440 Signed Impressions: Service Date/Time: Saturday, August 06, 2016 14:51 - CONCLUSION: 1. Fracture dislocation of the right elbow as above. Crow Martinez MD Objective Remarks GENERAL: in NAD SKIN: Warm and dry. HEAD: Normocephalic. EYES: No scleral icterus. No injection or drainage. NECK: Supple, trachea midline. No JVD or lymphadenopathy. CARDIOVASCULAR: Regular rate and rhythm without murmurs, gallops, or rubs. RESPIRATORY: Breath sounds equal bilaterally. No accessory muscle use. GASTROINTESTINAL: Abdomen soft, non-tender, nondistended. MUSCULOSKELETAL: right arm in splint. sensation intact. BACK: Nontender without obvious deformity. No CVA tenderness. Medications and IVs Current Medications Acetaminophen/ Hydrocodone Bitart ([place] 5-325 Mg) 1 tab ONCE ONCE PO Last administered on 08/06/16 14:58; Start 08/06/16 at 14:45; Stop 08/06/16 at 14:46 ; Status DC Propofol (Diprivan 200 Mg/20 ml Inj) 100 mg ONCE ONCE IV Last administered on 08/06/16 16:34; Start 08/06/16 at 16:30; Stop 08/06/16 at 16:31; Status DC Ondansetron HCl (Zofran Inj) 4 mg ONCE ONCE IV PUSH Last administered on 18:40; Start 08/06/16 at 18:30; Stop 08/06/16 at 18:31; Status DC Morphine Sulfate (Morphine Inj) 5 mg ONCE ONCE IV PUSH Last administered on 18:41; Start 08/06/16 at 18:30; Stop 08/06/16 at 18:31; Status DC Sodium Chloride (NS Flush) 2 ml UNSCH PRN IV FLUSH FLUSH AFTER USING IV ACCESS ; Start 08/06/16 at 19:45 Sodium Chloride (NS Flush) 2 ml BID IV FLUSH Last administered on 08/08/16 07: 38; Start 08/06/16 at 21:00 Naloxone HCl (Narcan Inj) 0.4 mg UNSCH PRN IV SEE LABEL COMMENTS; Start at 19:45 Morphine Sulfate (Morphine Inj) 2 mg Q3H PRN IV PUSH pain >5 Last administered on 08/08/16 03:40; Start 08/06/16 at 20:00; Stop 08/08/16 at 10:10; Status DC Ondansetron HCl (Zofran Inj) 4 mg Q6HR PRN IV PUSH nausea Last administered on 08/07/16 00:16; Start 08/06/16 at 20:00 Vancomycin HCl (Vancomycin Inj) 1,000 mg STK-MED ONCE .ROUTE Last administered on 08/08/16 09:52; Start 08/08/16 at 08:31; Stop 08/08/16 at 08:32; Status DC Gentamicin Sulfate 240 mg 240 mg STK-MED ONCE .ROUTE Last administered on 09:56; Start 08/08/16 at 08:31; Stop 08/08/16 at 08:32; Status DC Sodium Chloride (NS 250 ml Inj) 250 ml @ As Directed STK-MED ONCE .ROUTE Last administered on 08/08/16 09:52; Start 08/08/16 at 08:31; Stop 08/08/16 at 08:32 ; Status DC Miscellaneous Information STAT ONCE XX ; Start 08/08/16 at 08:45; Stop at 11:31; Status DC Cefazolin Sodium/ Dextrose (Ancef 2 Gm Premix) 50 ml @ 100 mls/hr Q8H IV ; Start 08/08/16 at 18:00; Stop 08/09/16 at 10:29 Acetaminophen/ Hydrocodone Bitart ([place] 10-325 Mg) 1 tab Q3H PRN PO PAIN 3<10 Last administered on 08/08/16 16:14; Start 08/08/16 at 08:45 Morphine Sulfate (Morphine Inj) 4 mg Q3H PRN IV PUSH break thru pain Last administered on 08/08/16 13:31; Start 08/08/16 at 08:45 Acetaminophen (Ofirmev Inj) 1,000 mg STK-MED ONCE IV Last administered on 09:10; Start 08/08/16 at 09:02; Stop 08/08/16 at 09:03; Status DC Midazolam HCl (Versed Inj) 2 mg STK-MED ONCE .ROUTE Last administered on 09:07; Start 08/08/16 at 09:02; Stop 08/08/16 at 09:03; Status DC Dexamethasone Sodium Phosphate (Decadron Inj) 4 mg STK-MED ONCE .ROUTE Last administered on 08/08/16 09:08; Start 08/08/16 at 09:03; Stop 08/08/16 at 09:04 ; Status DC Cefazolin Sodium (Ancef Inj) 2,000 mg STK-MED ONCE IV Last administered on 08/08 09:50; Start 08/08/16 at 09:50; Stop 08/08/16 at 10:25; Status DC Miscellaneous Information ALL NURSING DEPARTME... UNSCH PRN XX SEE LABEL COMMENTS; Start 08/08/16 at 12:00; Stop 08/09/16 at 11:59 Fentanyl Citrate (fentaNYL INJ) 250 mcg STK-MED ONCE .ROUTE ; Start 08/08/16 at 11:50; Stop 08/08/16 at 11:51; Status DC A/P Assessment and Plan 71 y/o F with GERD p/w mechanical fall on elbow Right dislocated elbow fracture -Xray of arm showed fracture dislocation of the right elbow and dislocation of the distal humerus in relation to the proximal ulna and radius with acute fractures involving the proximal radius and coronoid process of the proximal ulna. -CT of arm showed extensive fracture dislocation of the elbow as detailed above. The radial head is extensively comminuted and displaced with no large single fragment identified, a small fracture of the distal articulating lip of the proximal ulna. The humeral condyle is perched on the fractured component of the ulna. -Reduced in ED. -s/p Right elbow arthrotomy with removal of bone fragments, right radial head replacement, open treatment of right elbow dislocation, suture repair of coronoid process on 08/08/[address] Garcia. -OT/PT consulted. most likely can go home with home health. DVT prophylaxis -SCDs Discharge Planning patient is very tired today most likely due to anesthesia. She will get PT and OT and most likely can be d/c home with home health tomorrow if pain is controlled. Zoila Berry MD Aug 08, 2016 16:53
[2016-08-08] MEDS: ceFAZolin 2 GM PREMIX 50 ML IV SCH (17:25)
[2016-08-08 20:15] VITALS: BP 132/69; PULSE 84; RESP 18; TEMP 98.9; O2SAT 94
[2016-08-09 00:27] VITALS: BP 125/70; PULSE 80; RESP 17; TEMP 98.7; O2SAT 94
[2016-08-09] MEDS: ACETAMINOPHEN/HYDROcodone 325 MG/10 MG TAB PO PRN ×2 (00:33→09:18)
[2016-08-09] MEDS: ceFAZolin 2 GM PREMIX 50 ML IV SCH ×2 (00:35→09:17)
[2016-08-09 04:46] VITALS: BP 112/55; PULSE 82; RESP 18; TEMP 98.7; O2SAT 93
[2016-08-09] MEDS: MORPHINE SULFATE 4 MG/ML INJ IV PUSH PRN (05:20)
--- NOTE | 2016-08-09 06:52 | PD.ORT.PN ---
Subjective Subjective Remarks Elisa is a 71-year-old female who fell and sustained a fracture dislocation of her right elbow. She has right elbow radial head replacement with open treatment of dislocation on 08/08/12. Pain is well-controlled. She wants to go home today. Objective Vitals Vital Signs Date Time Temp Pulse Resp B/P Pulse Ox O2 Delivery O2 Flow Rate FiO2 08/09/16 04:46 98.7 82 18 112/55 93 08/09/16 00:27 98.7 80 17 125/70 94 08/08/16 20:15 98.9 84 18 132/69 94 08/08/16 16:00 97.2 85 18 136/69 94 08/08/16 12:15 97.6 85 16 146/80 95 Room Air 08/08/16 12:00 97.2 82 19 167/81 94 08/08/16 12:00 84 16 150/78 94 Room Air 08/08/16 11:45 88 16 159/70 98 Nasal Cannula 3 08/08/16 11:42 97.4 89 18 161/72 95 Nasal Cannula 3 08/08/16 08:00 98.4 76 18 122/60 94 I/O 08/08/16 08/08/16 08/08/16 08/09/16 08/09/16 08/09/16 06:59 14:59 22:59 06:59 14:59 22:59 Intake Total 0 ml 850 ml 520 ml 380 ml Output Total 550 ml 950 ml 1800 ml 500 ml Balance -550 ml -100 ml -1280 ml -120 ml Intake Oral 0 ml 480 ml 380 ml IV Total 50 ml 40 ml Other 800 ml Output Urine Total 550 ml 900 ml 1800 ml 500 ml Estimated Blood Loss 50 ml # Voids 0 # Bowel Movements 0 Result Diagram: 08/08/16 0438 08/08/16 0438 Objective Remarks Patient is awake and alert. Examination of right upper extremity reveals clean dry dressing in place. She has mild swelling of her hand. She has intact sensation in all fingers. Assessment & Plan Assessment and Plan Postop day 1 status post open treatment right elbow dislocation with radial head replacement Absolutely no use of right arm Keep right arm dressing clean and dry Work on gentle finger range of motion Discharge home today Follow-up in clinic 2 weeks Ish Garcia MD Aug 09, 2016 06:52
[2016-08-09] MEDS ORDERED: HYDR-3288 PO (06:54)
[2016-08-09 08:00] VITALS: BP 125/69; PULSE 81; RESP 16; TEMP 97.9; O2SAT 97
[2016-08-09] MEDS: SODIUM CHLORIDE 0.9% FLUSH 10 ML FLUSH IV FLUSH SCH (09:00)
--- NOTE | 2016-08-09 09:01 | HHI.FF ---
Face to Face Verification Diagnosis: (1) Fracture dislocation of right elbow joint Occupational Therapy Order: Evaluate and Treat Home Health Nursing Order: Signs/symptoms of disease process Home Health Aide Order: To Assist In: Bathing and personal care I have seen patient Elisa Coronel on 08/09/16. My clinical findings support the need for the requested home health care services because: Deconditioned w/ increased weakness Limited ability to care for self I certify that my clinical findings support that this patient is homebound because: Poor cardiac reserve Gerardo Wisdom MD Aug 09, 2016 09:00 Gerardo Wisdom MD Aug 09, 2016 09:00
--- NOTE | 2016-08-09 10:39 | HHI.PR ---
Subjective Remarks Follow-up right elbow fracture 08/09/16-patient seen and examined, complains of some mild left elbow pain. Afebrile and no acute event overnight. Objective Vitals Vital Signs Date Time Temp Pulse Resp B/P Pulse Ox O2 Delivery O2 Flow Rate FiO2 08/09/16 08:00 97.9 81 16 125/69 97 08/09/16 04:46 98.7 82 18 112/55 93 08/09/16 00:27 98.7 80 17 125/70 94 08/08/16 20:15 98.9 84 18 132/69 94 08/08/16 16:00 97.2 85 18 136/69 94 08/08/16 12:15 97.6 85 16 146/80 95 Room Air 08/08/16 12:00 97.2 82 19 167/81 94 08/08/16 12:00 84 16 150/78 94 Room Air 08/08/16 11:45 88 16 159/70 98 Nasal Cannula 3 08/08/16 11:42 97.4 89 18 161/72 95 Nasal Cannula 3 I/O 08/08/16 08/08/16 08/08/16 08/09/16 08/09/16 08/09/16 07:00 15:00 23:00 07:00 15:00 23:00 Intake Total 0 ml 850 ml 520 ml 380 ml 40 ml Output Total 550 ml 950 ml 1800 ml 500 ml 200 ml Balance -550 ml -100 ml -1280 ml -120 ml -160 ml Intake Oral 0 ml 480 ml 380 ml IV Total 50 ml 40 ml 40 ml Other 800 ml Output Urine Total 550 ml 900 ml 1800 ml 500 ml 200 ml Estimated Blood Loss 50 ml # Voids 0 # Bowel Movements 0 Result Diagram: 08/08/16 0438 08/08/16 0438 Imaging Last Impressions Elbow X-Ray 08/08/16 0000 Signed Impressions: Service Date/Time: July 11:02 - CONCLUSION: Successful repair and reduction of previous fracture dislocation. The severely comminuted radial head corbin been replaced with a prostheses. Malcom Oconnor MD Upper Extremity CT 08/07/16 0000 Signed Impressions: Service Date/Time: Sunday, August 07, 2016 08:15 - CONCLUSION: 1. Extensive fracture dislocation of the elbow as detailed above. The radial head is extensively comminuted and displaced with no large single fragment identified. 2. I believe there is a small fracture of the distal articulating lip of the proximal ulna. The humeral condyle is perched on the fractured component of the ulna Malcom Oconnor MD Chest X-Ray 08/06/16 1817 Signed Impressions: Service Date/Time: Saturday, August 06, 2016 18:27 - CONCLUSION: No acute cardiopulmonary disease. Kendall Santo MD Radius/Ulna X-Ray 08/06/16 1440 Signed Impressions: Service Date/Time: Saturday, August 06, 2016 14:51 - CONCLUSION: 1. Fracture dislocation of the right elbow as above. Crow Martinez MD Objective Remarks GENERAL: SKIN: Warm and dry. HEAD: Normocephalic. EYES: No scleral icterus. No injection or drainage. NECK: Supple, trachea midline. No JVD or lymphadenopathy. CARDIOVASCULAR: Regular rate and rhythm without murmurs, gallops, or rubs. RESPIRATORY: Breath sounds equal bilaterally. No accessory muscle use. GASTROINTESTINAL: Abdomen soft, non-tender, nondistended. MUSCULOSKELETAL: Right elbow repair in sling-neurovascular intact BACK: Nontender without obvious deformity. No CVA tenderness. Procedures Right elbow arthrotomy with removal of bone fragments, right radial head replacement, open treatment of right elbow dislocation, suture repair of coronoid process A/P Problem List: (1) Fracture dislocation of right elbow joint ICD Code: S42.401A Status: Acute Assessment and Plan 71 y/o F with GERD p/w mechanical fall on elbow Right dislocated elbow fracture -Xray of arm showed fracture dislocation of the right elbow and dislocation of the distal humerus in relation to the proximal ulna and radius with acute fractures involving the proximal radius and coronoid process of the proximal ulna. -CT of arm showed extensive fracture dislocation of the elbow as detailed above. The radial head is extensively comminuted and displaced with no large single fragment identified, a small fracture of the distal articulating lip of the proximal ulna. -s/p Right elbow arthrotomy with removal of bone fragments, right radial head replacement, open treatment of right elbow dislocation, suture repair of coronoid process on 08/08/[address] Garcia. -OT/PT consulted. -continue with Current pain management DVT prophylaxis -SCDs Problem Qualifiers (1) Fracture dislocation of right elbow joint: Qualified Code: S42.401A - Fracture dislocation of right elbow joint, closed, initial encounter Gerardo Wisdom MD Aug 09, 2016 10:39
[2016-08-09] MEDS ORDERED: PERI8.6T PO (10:44)
--- NOTE | 2016-08-09 10:45 | HHI.DS ---
Discharge Summary Admission Date Aug 06, 2016 at 19:20 Discharge Date: Aug 09, 2016 Admitting Diagnosis FRACTURE DISLOCATION LEFT ELBOW (1) Fracture dislocation of right elbow joint ICD Code: S42.401A Procedures Right elbow arthrotomy with removal of bone fragments, right radial head replacement, open treatment of right elbow dislocation, suture repair of coronoid process Brief History - From Admission This is a 71 y/o F who presented with right elbow pain. Patient stated yesterday after checking the mail she lost her balance fell landed on her right arm in the ditch. Patient stated that after the fall she was not able to move her right arm. She stated that a friend had to help her get up and that later on her took her to the hospital. Patient past medical history only includes acid reflux. She stated that she had been under general anesthesia before for her hysterectomy tonsillectomy with no complications with general anesthesia. She stated that it did take a while to get her system but she had no complications. Patient also is active and she works out at [employer]. She stated that she does 30 minute workout there and also she rides her bike. Patient denies any chest pain, shortness of breathing, lightheadedness/ dizziness or palpitations with these activities. She stated that she is relatively healthy person. CBC/BMP: 08/08/16 0438 08/08/16 0438 Significant Findings Laboratory Tests Test 08/06/16 08/07/16 08/08/16 18:35 04:23 04:38 Neutrophils (%) (Auto) 77.5 % 71.8 % (16.0-70.0) (16.0-70.0) Blood Urea Nitrogen 19 MG/DL (7-18) Random Glucose 107 MG/DL 125 MG/DL (74-106) (74-106) Red Blood Count 3.96 MIL/MM3 3.93 MIL/MM3 (4.00-5.30) (4.00-5.30) Monocytes (%) (Auto) 10.9 % (0.0-8.0) Imaging Last Impressions Elbow X-Ray 08/08/16 0000 Signed Impressions: Service Date/Time: July 11:02 - CONCLUSION: Successful repair and reduction of previous fracture dislocation. The severely comminuted radial head corbin been replaced with a prostheses. Malcom Oconnor MD Upper Extremity CT 08/07/16 0000 Signed Impressions: Service Date/Time: Sunday, August 07, 2016 08:15 - CONCLUSION: 1. Extensive fracture dislocation of the elbow as detailed above. The radial head is extensively comminuted and displaced with no large single fragment identified. 2. I believe there is a small fracture of the distal articulating lip of the proximal ulna. The humeral condyle is perched on the fractured component of the ulna Malcom Oconnor MD Chest X-Ray 08/06/16 1817 Signed Impressions: Service Date/Time: Saturday, August 06, 2016 18:27 - CONCLUSION: No acute cardiopulmonary disease. Kendall Santo MD Radius/Ulna X-Ray 08/06/16 1440 Signed Impressions: Service Date/Time: Saturday, August 06, 2016 14:51 - CONCLUSION: 1. Fracture dislocation of the right elbow as above. Crow Martinez MD PE at Discharge GENERAL: SKIN: Warm and dry. HEAD: Normocephalic. EYES: No scleral icterus. No injection or drainage. NECK: Supple, trachea midline. No JVD or lymphadenopathy. CARDIOVASCULAR: Regular rate and rhythm without murmurs, gallops, or rubs. RESPIRATORY: Breath sounds equal bilaterally. No accessory muscle use. GASTROINTESTINAL: Abdomen soft, non-tender, nondistended. MUSCULOSKELETAL: Right elbow repair in sling-neurovascular intact BACK: Nontender without obvious deformity. No CVA tenderness. Hospital Course Patient admitted secondary to right elbow fractures for which orthopedic surgery was consulted and she underwent repair. Was operatively pain management was provided and PT and OT were consulted. DVT prophylaxis was provided. Vitals were monitored. Prior to discharge patient's condition improved. Pt Condition on Discharge: Stable Discharge Disposition: Disch w/ Home Health Serv Discharge Time: > 30 minutes Discharge Instructions DIET: Follow Instructions for: Heart Healthy Diet Activities you can perform: Regular-No Restrictions Follow up Referrals: Orthopedics - 2 Weeks @ [facility] with Ish Garcia MD PCP Follow-up - 1 Week New Medications: Hydrocodone-Acetaminophen ([place]) 7.5-325 mg Tab 1 TAB PO Q4H PRN PAIN #60 Ref 0 TAB Sennosides-Docusate Sodium (Karla-Colace) 8.6-50 Mg Tab 1 TAB PO BID PRN Constipation #20 Ref 0 TAB Continued Medications: Ascorbic Acid (Vitamin C) 1,000 Mg Tab 1000 MG PO DAILY Nutritional Supplement Ref 0 TAB Calcium Carbonate (Calcium Carbonate) 1,500 Mg Tab 1500 MG PO DAILY 1,500 mg calcium carbonate (600 mg elemental calcium) Calcium Supplement Ref 0 TAB Fish Oil-Cholecalciferol (Fish Oil + D3) 1,200-1,000 Mg-Unit Cap 1 CAP PO DAILY Nutritional Supplement #30 Ref 0 CAP Gerardo Wisdom MD Aug 09, 2016 10:45
[2016-08-09 12:00] VITALS: BP 138/67; PULSE 77; RESP 18; TEMP 98.3; O2SAT 100
[2016-09-05] MEDS ORDERED: OMEP20TA PO (15:17)
[2016-10-29] MEDS ORDERED: ASCO500T PO (07:16)
[2016-10-29] MEDS ORDERED: HYDR-3288 PO (08:36)
== END 2016-08-09 14:20 | disposition home or self-care (01) | DRG 483 ==
LOC: PHEFT 13:34 → PHEDA 19:20 → N07B 08-07 01:05
PROVIDERS: ADMIT Hospitalist; ATTEND Hospitalist
PROC: 0PSC04Z Reposition Right Humeral Head with Internal Fixation Device, Open Approach (ICD-10-PCS; 2016-08-08)
PROC: 0RRL0JZ Replacement of Right Elbow Joint with Synthetic Substitute, Open Approach (ICD-10-PCS; principal; 2016-08-08 09:24)
DX: S52.121A Displaced fracture of head of right radius, initial encounter for closed fracture (principal); E11.9 Type 2 diabetes mellitus without complications; K21.9 Gastro-esophageal reflux disease without esophagitis; W17.89XA Other fall from one level to another, initial encounter; Y92.007 Garden or yard of unspecified non-institutional (private) residence as the place of occurrence of the external cause; E66.9 Obesity, unspecified
CPT/HCPCS: 24600; 51702; 71010; 73070; 73090; 73200; 76000; 80048; 81001; 85025; 85027; 85610; 85730; 93005; 94150; 94770; 96374; 96375; C1776; J0131; J0690; J1100; J1580; J2250; J2270; J2370; J2405; J3010; J3370; J7050

== ENCOUNTER 2016-09-06 05:32 | Observation (INO) | payer OTHER ==
[~2016-09-06] VITALS: Ht 152.4 cm; Wt 103.8 kg
[~2016-09-06 05:32] MED LIST changes: +CALC600T4 PO; -DILA100C PO; -DILA50CH CHEW; +FISHCAP4 PO; -GLUCTAB PO; +HYDR-3288 PO; -LORA-474 PO; -NEUR100C PO; +OMEP20TA PO; +PERI8.6T PO; +VITA10007 PO
[2016-09-06] MEDS ORDERED: CHLORHEXIDINE GLUCONATE 2 % 1 PACK (2 CLOTHS) TOPICAL PRN (06:00)
[2016-09-06] MEDS ORDERED: SODIUM CHLORID 0.9% 500 ML IV PRN (06:00)
[2016-09-06] MEDS ORDERED: LACTATED RINGER'S 1000 ML IV PRN (06:00)
[2016-09-06] MEDS ORDERED: INSULIN HUMAN REGULAR 1,000 UNITS/10 ML VIAL SQ PRN (06:00)
[2016-09-06] MEDS ORDERED: METOPROLOL TARTRATE 25 MG TAB PO PRN (06:00)
[2016-09-06] MEDS ORDERED: POVIDONE IODINE 5% (ANTISEPSIS KIT) 4 APPLICATIONS EACH NARE PRN (06:00)
[2016-09-06 06:06] VITALS: BP 145/84; PULSE 75; RESP 18; TEMP 98.1; O2SAT 96
[2016-09-06] MEDS ORDERED: VANCOMYCIN HCL 1000 MG VIAL ONE (06:10)
[2016-09-06] MEDS ORDERED: SODIUM CHLOR 0.9% 250 ML INJ 250 ML ONE (06:10)
[2016-09-06] MEDS ORDERED: GENTAMICIN SULFATE 80 MG/2 ML VIAL ONE (06:37)
[2016-09-06] MEDS ORDERED: fentaNYL CITRATE 250 MCG/5 ML AMP ONE (06:40)
[2016-09-06] MEDS ORDERED: MIDAZOLAM HCL 2 MG/2 ML VIAL ONE (06:40)
[2016-09-06] MEDS ORDERED: DEXAMETHASONE SOD PHOS 4 MG/ML VIAL ONE (06:41)
[2016-09-06] MEDS ORDERED: FAMOTIDINE 20 MG/2 ML VIAL ONE (06:41)
[2016-09-06] MEDS ORDERED: ceFAZolin 2 GM PREMIX 50 ML ONE (06:53)
[2016-09-06] MEDS ORDERED: HYDR-3288 PO (08:21)
--- NOTE | 2016-09-06 08:22 | HHI.FF ---
Face to Face Verification Diagnosis: (1) Fracture dislocation of right elbow joint Occupational Therapy Right UE Weight Bearing: Non WB Nursing Nursing: Pin care, Teach and assist BID pin care I have seen patient Elisa Coronel on 09/06/16. My clinical findings support the need for the requested home health care services because: Ltd mobility - disease progression I certify that my clinical findings support that this patient is homebound because: Post-op weakness Ashwin Keita Sep 06, 2016 08:22
[2016-09-06] MEDS ORDERED: MORPHINE SULFATE 4 MG/ML INJ IV PUSH PRN (08:45)
[2016-09-06] MEDS ORDERED: DOCUSATE SODIUM 50 MG/SENNA 8.6 MG TAB PO PRN (08:45)
[2016-09-06] MEDS ORDERED: Post-op Orders (for Pharmacy) MISC XX ONE (08:45)
--- NOTE | 2016-09-06 08:45 | PD.ORT.PN ---
Subjective Subjective Remarks Postoperative day 0, right elbow reduction with hinged external fixation and primary repair of lateral ulnar collateral ligament Objective Vitals Vital Signs Date Time Temp Pulse Resp B/P Pulse Ox O2 Delivery O2 Flow Rate FiO2 09/06/16 06:06 98.1 75 18 145/84 96 Objective Remarks Patient has clean dry dressing in place. Posterior splint with external fixation. Assessment & Plan Assessment and Plan No use of right arm Do not change dressings Follow-up with Dr. Rey 1 week Plan on discharge home on Friday Ish Rey MD Sep 06, 2016 08:45
--- NOTE | 2016-09-06 08:52 | PD.OP ---
cc: Ish Rey MD Operative Report Date of Surgery: Sep 06, 2016 Preoperative Diagnosis: Right elbow dislocation Postoperative Diagnosis: Same Procedure: Open treatment of right elbow dislocation, placement of hinged external fixation right elbow, primary repair of lateral ulnar collateral ligament Anesthesia: Gen. Surgeon: Ish Rey Digital Composer(s): RENARD Montez PA-C The surgical procedure was assisted by my physician curriculum assistant. My P.A. presence was necessary throughout this case for the manipulation and positioning of the surgical extremity. My P.A. was assisting me throughout the duration of this procedure. The skill set of a physician curriculum assistant was medically necessary to complete this procedure. During the surgical case the operating room surgical technician was working at the back table and the physician curriculum assistant was directly assisting me. Operation and Findings: Elisa is well-known to me from previous right elbow fracture dislocation. She previously underwent radial head replacement with suture repair of the coronoid process. Patient was seen and evaluated in the office and found to have recurrent dislocation of the radial head with subluxation of the elbow joint. Informed consent was obtained and operative site was marked. She is brought to operating room placed on or table. She was given IV sedation and general anesthesia. Timeout procedure was performed. She is placed in lateral decubitus position. Right arm was prepped with alcohol followed by Hibiclens and draped usual sterile fashion. Procedure began with attempted closed reduction of the radial head. The elbow was gently manipulated. I was unable to achieve concentric reduction of the radial head. At this point the decision was made to proceed with open reduction. The previous posterior incision was opened. The incision was also extended proximally and distally. Subcutaneous tissue dissected with Bovie. The fascia over the radial head was split through previous incision. the radial head was visualized. There was scar tissue around the radial head. The radial head was mobilized and reduced. The lateral collateral ligaments were unstable. Fluoroscopy confirmed concentrically reduced elbow at this time. Next attention was turned to placement of hinged external fixation. A guidepin was placed through the center of rotation of the capitellum. This 2 external fixator pins were placed into the ulnar shaft and 2 additional pins were placed into the humerus shaft. The radial nerve was identified prior to placement of the humeral pins. The radial nerve was protected during placement of these pins. The clamps were now assembled to create an external fixator. The external fixator hinge was placed over the previously placed guidepin through the capitellum. Care was taken to keep the trochanter centered on the axis of rotation. External fixator was now tightened to hold the elbow concentrically reduced. Fluoroscopy confirmed appropriate reduction of the elbow. Lastly attention was turned towards the lateral ulnar collateral ligament. A drill hole was made at the site of the lateral ulnar collateral ligament origin. A Arthrex 5.5 mm bioabsorbable anchor was now placed into the distal humerus. The attached #2 FiberWire sutures were now used to repair the lateral ulnar collateral ligament and lateral fascia. The ulnar collateral ligament was firmly reattached to the distal humerus. The radial head appeared to be relatively stable through gentle motion of the elbow. Wound was now thoroughly irrigated. Subcutaneous tissues closed with 3-0 Vicryl and skin was closed with 3-0 nylon and sulaiman. Sterile dressings were applied. Patient placed into a well molded well-padded long-arm splint. She was awakened and transferred to recovery room in stable condition. Ish Rey MD Sep 06, 2016 08:52
[2016-09-06] MEDS ORDERED: NON-FORMULARY DRUG (Fish Oil-Cholecalciferol (Fish Oil + D3) 1 CAP) PO SCH (09:00)
[2016-09-06] MEDS ORDERED: *LABETALOL HCL 100 MG/20 ML VIAL PERIprocedural Use ONLY ONE (10:52)
[2016-09-06] MEDS ORDERED: DO NOT ADM ANY ANTICOAGULANT DRUGS PRN (11:00)
[2016-09-06] MEDS ORDERED: *ENALAPRILAT 1.25 MG/ML VIAL PERIprocedural Use ONLY ONE (11:33)
[2016-09-06 12:00] VITALS: BP_SYST 118; BP_SYST 119; BP_DIAS 61; BP_DIAS 69; PULSE 73; PULSE 81; RESP 18; TEMP 96.2; TEMP 96.5; O2SAT 93; O2SAT 97
[2016-09-06] MEDS ORDERED: PROPOFOL 200 MG/20 ML AMP IV ONE (12:00)
[2016-09-06] MEDS ORDERED: ePHEDrine/NS 25 MG/5 ML SYR IV ONE (12:00)
[2016-09-06] MEDS ORDERED: NEOSTIGMINE 3 MG/3 ML SYR IV ONE (12:00)
[2016-09-06] MEDS ORDERED: ONDANSETRON HCL 4 MG/2 ML VIAL IV PUSH ONE (12:00)
[2016-09-06] MEDS: CALCIUM CARBONATE 1.25 GM (CA 500 MG) TAB PO SCH (12:43)
[2016-09-06] MEDS: ASCORBIC ACID 500 MG TAB PO SCH (12:44)
--- NOTE | 2016-09-06 12:50 | RADRPT ---
EXAM DATE/TIME: 09/06/2016 07:46 [place] COMPARISON: No previous studies available for comparison. INDICATIONS : External fixator and ligament repair right elbow. MEDICAL HISTORY : None. SURGICAL HISTORY : Radial head replacement. ENCOUNTER: Subsequent ACUITY: 1 month PAIN SCORE: Non-responsive. LOCATION: Right elbow. FINDINGS: External fixation device is identified with hemiarthroplasty of the radial head. CONCLUSION: Intact postsurgical changes. Kendall Santo MD on September 06, 2016 at 12:47 Board Certified Radiologist. This report was verified electronically.
[2016-09-06 16:01] VITALS: O2SAT 97
[2016-09-06] MEDS: ACETAMINOPHEN/HYDROcodone 325 MG/10 MG TAB PO PRN ×2 (16:10→21:46)
[2016-09-06] MEDS: ceFAZolin 2 GM PREMIX 50 ML IV SCH ×2 (16:12→21:45)
[2016-09-06 20:00] VITALS: BP 113/54; PULSE 91; RESP 20; TEMP 97.2; O2SAT 96
--- NOTE | 2016-09-06 20:42 | EKG ---
Date Performed: 09/06/2016 Time Performed: 06:24:39 PTAGE: 71 years EKG: Sinus rhythm MINIMAL VOLTAGE CRITERIA FOR LVH, CONSIDER NORMAL VARIANT VOLTAGE HAS INCREASED Compared to previous tracing BORDERLINE ECG NO PREVIOUS TRACING DOCTOR: Stephan Huerta Interpretating Date/Time 09/06/2016 20:41:17
[2016-09-06] MEDS: MAGNESIUM HYDROXIDE SUSP 30 ML CUP PO SCH (21:45)
[2016-09-07] VITALS: BP 103/47; PULSE 73; RESP 20; TEMP 96.9; O2SAT 95
[2016-09-07 04:00] VITALS: BP 117/60; PULSE 74; RESP 20; TEMP 97.1; O2SAT 96
[2016-09-07] MEDS: ceFAZolin 2 GM PREMIX 50 ML IV SCH (05:41)
--- NOTE | 2016-09-07 07:52 | PD.ORT.PN ---
Subjective Subjective Remarks No complaints. Sitting in chair. Dressing intact. X fix pins appear to be in proper orientation Objective Vitals Vital Signs Date Time Temp Pulse Resp B/P Pulse Ox O2 Delivery O2 Flow Rate FiO2 09/07/16 04:00 97.1 74 20 117/60 96 09/07/16 00:00 96.9 73 20 103/47 95 09/06/16 20:00 97.2 91 20 113/54 96 09/06/16 18:55 Room Air 09/06/16 16:01 97 21 09/06/16 12:00 96.2 73 18 118/69 97 09/06/16 12:00 96.5 81 18 119/61 93 09/06/16 11:45 98.1 81 12 163/82 96 Nasal Cannula 2 09/06/16 11:30 79 12 172/84 96 Nasal Cannula 2 09/06/16 11:15 78 12 190/95 96 Nasal Cannula 2 09/06/16 11:00 80 12 211/102 97 Nasal Cannula 2 09/06/16 10:45 83 12 190/97 96 Nasal Cannula 2 09/06/16 10:30 88 12 103/94 96 Nasal Cannula 2 09/06/16 10:15 81 12 185/97 95 Nasal Cannula 2 09/06/16 10:00 81 12 195/96 96 Nasal Cannula 2 09/06/16 09:45 85 12 187/87 96 Nasal Cannula 2 09/06/16 09:30 82 12 157/79 95 Nasal Cannula 2 09/06/16 09:23 97.5 84 12 163/86 98 Nasal Cannula 2 I/O 09/06/16 09/06/16 09/06/16 09/07/16 09/07/16 09/07/16 07:00 15:00 23:00 07:00 15:00 23:00 Intake Total 1940 ml 408 ml 240 ml Output Total 2075 ml Balance -135 ml 408 ml 240 ml Intake Oral 740 ml 408 ml 240 ml Other 1200 ml Output Urine Total 2000 ml Estimated Blood Loss 75 ml # Voids 1 3 2 3 # Bowel Movements 0 0 0 Objective Remarks Patient has clean dry dressing in place. Posterior splint with external fixation. Finger motion is normal. Sensation normal to radial, ulnar and median nerves Assessment & Plan Ortho Post Op Day #: 1 Problem List: Assessment and Plan No use of right arm Do not change dressings Follow-up with Dr. Rey 1 week Plan on discharge home today Hardeep Stern MD Sep 07, 2016 07:52
[2016-09-07 08:00] VITALS: BP 129/65; PULSE 73; RESP 18; TEMP 96.7; O2SAT 99
[2016-09-07] MEDS: MAGNESIUM HYDROXIDE SUSP 30 ML CUP PO SCH (08:26)
[2016-09-07] MEDS: ASCORBIC ACID 500 MG TAB PO SCH (08:26)
[2016-09-07] MEDS: ACETAMINOPHEN/HYDROcodone 325 MG/10 MG TAB PO PRN ×2 (08:27→13:22)
[2016-09-07] MEDS: CALCIUM CARBONATE 1.25 GM (CA 500 MG) TAB PO SCH (08:27)
[2016-09-07 09:29] VITALS: O2SAT 96
[2016-09-07 12:00] VITALS: BP 124/73; PULSE 75; RESP 18; TEMP 96.5; O2SAT 95
[2016-10-29] MEDS ORDERED: ASCO500T PO (07:16)
[2016-10-29] MEDS ORDERED: HYDR-3288 PO (08:36)
== END 2016-09-07 14:45 | disposition home health service (06) ==
LOC: HSDC 05:32 → N06A 12:39 → HSDC 09-07 02:17 → N06A 09-07 02:18 → UNDODISOB 09-07 14:45
PROVIDERS: ADMIT Orthopaedic Surgery Orthopaedic Trauma; ATTEND Orthopaedic Surgery Orthopaedic Trauma
DX: S53.104A Unspecified dislocation of right ulnohumeral joint, initial encounter (principal); S53.441A Ulnar collateral ligament sprain of right elbow, initial encounter; R94.31 Abnormal electrocardiogram [ECG] [EKG]; K21.9 Gastro-esophageal reflux disease without esophagitis
CPT/HCPCS: 01830; 20692; 24343; 24615; 73070; 76000; 93005; 94150; C1713; G0378; J0690; J1100; J1580; J2250; J2405; J2710; J3010; J3370; J7050; J7120

== ENCOUNTER → 2016-10-29 | Day surgery (SDC) | payer OTHER ==
[~2016-10-29] VITALS: Ht 154.9 cm; Wt 105.3 kg
[~2016-10-29] MED LIST changes: +ACETAMINOPHEN/HYDROcodone 325 MG/7.5 MG TAB PO PRN; +ASCO500T PO; +CHLORHEXIDINE GLUCONATE 2 % 1 PACK (2 CLOTHS) TOPICAL PRN; +CHLORHEXIDINE GLUCONATE 4% SOLN 120 ML BTL TOPICAL SCH; +DO NOT ADM ANY ANTICOAGULANT DRUGS PRN; +FAMOTIDINE 20 MG/2 ML VIAL ONE; +GENTAMICIN SULFATE 80 MG/2 ML VIAL ONE; +INSULIN HUMAN REGULAR 1,000 UNITS/10 ML VIAL SQ PRN; +KETOROLAC TROMETHAMINE 30 MG/ML (IVP) VIAL IVP ONE; +LACTATED RINGER'S 1000 ML IV PRN; +METOPROLOL TARTRATE 25 MG TAB PO PRN; +MIDAZOLAM HCL 2 MG/2 ML VIAL ONE; +MORPHINE SULFATE 4 MG/ML INJ IV PUSH PRN; +ONDANSETRON HCL 4 MG/2 ML VIAL IV PRN; +ONDANSETRON HCL 4 MG/2 ML VIAL IV PUSH ONE; +POVIDONE IODINE 5% (ANTISEPSIS KIT) 4 APPLICATIONS EACH NARE PRN; +PROPOFOL 200 MG/20 ML AMP IV ONE; +SODIUM CHLORID 0.9% 500 ML IV PRN; +SODIUM CHLORIDE 0.9% FLUSH 10 ML FLUSH IV FLUSH PRN; +SODIUM CHLORIDE 0.9% FLUSH 10 ML FLUSH IV FLUSH SCH; +SUGAMMADEX SODIUM 200 MG/2 ML VIAL IV PUSH ONE; +VANCOMYCIN 1000 MG/NS 250 ML (for <70 kg) IV SCH; +ceFAZolin 2 GM PREMIX 50 ML IV SCH; +fentaNYL CITRATE 250 MCG/5 ML AMP ONE
[2016-10-29 07:18] VITALS: BP 139/67; PULSE 76; RESP 16; TEMP 97.7; O2SAT 97
--- NOTE | 2016-10-29 08:40 | PD.OP ---
cc: Ish Rey MD Operative Report Date of Surgery: Oct 29, 2016 Preoperative Diagnosis: Right elbow fracture dislocation with retained external fixation and elbow contracture Postoperative Diagnosis: Procedure: Removal of external fixation, manipulation of elbow under anesthesia Anesthesia: Gen. Surgeon: Ish Rey Building Mover(s): Vinnie Coyne PA-C The surgical procedure was assisted by my physician district administrative assistant. My P.A. presence was necessary throughout this case for the manipulation and positioning of the surgical extremity. My P.A. was assisting me throughout the duration of this procedure. The skill set of a physician district administrative assistant was medically necessary to complete this procedure. During the surgical case the surgical assistant certified was working at the back table and the physician district administrative assistant was directly assisting me. Operation and Findings: Elisa is a 71-year-old female who is well-known to me for previous injury to her right elbow. Informed consent was obtained and operative site was marked. She was brought to the operating room. She was given IV sedation and general anesthesia. Timeout procedure was performed. Procedure began with removing the bars and clamps next fixation. Clamps were loosened. Pins were left in place. Next attention was turned towards manipulation of the elbow under anesthesia. Initial range of motion was from 60 to 80. The elbow was gently manipulated. I was able to achieve extension to 30 and flexion to 130. Fluoroscopy was used to confirm that the elbow was stable and concentrically reduced. At this point the external fixator pins were removed. Pin sites were prepped with alcohol and Hibiclens. Pins were now removed. Dressings were applied. Patient was placed into a sling. She was transferred to recovery room in stable condition. Ish Rey MD Oct 29, 2016 08:40
[2016-10-29 09:40] VITALS: BP 133/69; PULSE 82; RESP 18; TEMP 97.7; O2SAT 96
--- NOTE | 2016-10-29 14:49 | RADRPT ---
EXAM DATE/TIME: 10/29/2016 08:25 [facility] COMPARISON: ELBOW RIGHT LIMITED (AP & LAT), September 06, 2016, 7:46. INDICATIONS : External fixator removal right elbow, manipulation. MEDICAL HISTORY : None. SURGICAL HISTORY : Radial head replacement. ENCOUNTER: Subsequent ACUITY: 2 months PAIN SCORE: Non-responsive. LOCATION: Right elbow. FINDINGS: Hardware is noted within the right proximal radius and is unchanged compared to the previous examinat ion. Hardware is also noted within the distal shaft of the humerus and the proximal ulna. CONCLUSION: Hardware is unchanged compared to the previous examination. Real Greenwood MD on October 29, 2016 at 14:38 Board Certified Radiologist. This report was verified electronically.
== END | disposition home or self-care (01) ==
LOC: HSDC 06:31
PROVIDERS: ATTEND Orthopaedic Surgery Orthopaedic Trauma
DX: S42.401D Unspecified fracture of lower end of right humerus, subsequent encounter for fracture with routine healing (principal)
CPT/HCPCS: 01730; 20694; 73070; 76000; J1580; J2250; J2405; J3010; J3370; J7050; J7120